=== PATIENT | male | born 1955 | race Caucasian/White ===

== ENCOUNTER → 2018-05-06 | Outpatient (CLI) | payer OTHER ==
[~2018-05-06] MED LIST: AMITRIPTYLINE H25 M2 PO; AMLODIPINE BESY10 MG PO; ARICEPT 5 MG TAB5 MG PO; NEURONTIN600 MG PO; SENNA S TABLET1 EACH PO; TRAMADOL 50 MG50 MG PO
== END ==
LOC: M.NUC 12:49
DX: K76.0 Fatty (change of) liver, not elsewhere classified (principal); K80.20 Calculus of gallbladder without cholecystitis without obstruction; Z88.6 Allergy status to analgesic agent